=== PATIENT | female | born 1955 | race Caucasian/White ===

== ENCOUNTER 2017-05-26 13:00 | Emergency (ER) | payer BC ==
[~2017-05-26] VITALS: Ht 167.6 cm; Wt 90.3 kg
[~2017-05-26 13:00] MED LIST: ASPI81EC PO; CITA20 PO; DIAZ5 PO; FISH1000 PO; GLIP5 PO; HYDACE5 PO; INSULANI SUBQ; IRBE150 PO; MELA3 PO; OMEP20ER PO; PIOG30 PO; RXCLIN PO; RXHYD5325 PO
[2017-05-26] MEDS ORDERED: Norco 5-325 Ta1 EACH PO (14:05)
[2017-08-07] MEDS ORDERED: CITRATE OF MAG296 ML PO (14:19)
[2017-08-07] MEDS ORDERED: PROM25 PO (14:19)
[2017-08-07] MEDS ORDERED: BISA5EC PO (14:19)
== END 2017-05-26 14:13 | disposition home or self-care (01) ==
LOC: ER 13:00
DX: M25.511 Pain in right shoulder (principal); E11.9 Type 2 diabetes mellitus without complications; Z79.82 Long term (current) use of aspirin; Z79.899 Other long term (current) drug therapy; Z79.4 Long term (current) use of insulin
CPT/HCPCS: 99283

== ENCOUNTER 2017-06-18 09:50 | Day surgery (SDC) | payer BC ==
[~2017-06-18] VITALS: Ht 167.6 cm; Wt 83.5 kg
[~2017-06-18 09:50] MED LIST changes: +Norco 5-325 Ta1 EACH PO
[2017-06-18] MEDS ORDERED: INSULANPEN (11:07)
[2017-06-18] MEDS ORDERED: SITA100T2 (11:08)
[2017-06-18] MEDS ORDERED: BUPR150ERA (11:08)
[2017-06-18] MEDS ORDERED: METF500 (11:08)
[2017-06-18] MEDS ORDERED: MAGOXI400 (11:09)
[2017-06-18] MEDS ORDERED: Desyrel50 MG (11:10)
[2017-06-18] MEDS ORDERED: IRON150C (11:12)
[2017-06-18] MEDS ORDERED: Vitamin C100 M1 (11:12)
[2017-06-18] MEDS ORDERED: CHOL10002 (11:12)
[2017-08-07] MEDS ORDERED: BISA5EC PO (14:19)
[2017-08-07] MEDS ORDERED: CITRATE OF MAG296 ML PO (14:19)
[2017-08-07] MEDS ORDERED: PROM25 PO (14:19)
== END 2017-06-18 12:44 | disposition home or self-care (01) ==
LOC: ORSCSDS 09:50
PROVIDERS: Internal Medicine Gastroenterology
PROC: 0DBK8ZX Excision of Ascending Colon, Via Natural or Artificial Opening Endoscopic, Diagnostic (ICD-10-PCS; principal; 2017-06-18 11:30)
PROC: 0DBM8ZX Excision of Descending Colon, Via Natural or Artificial Opening Endoscopic, Diagnostic (ICD-10-PCS; principal; 2017-06-18 11:30)
PROC: 0DBL8ZX Excision of Transverse Colon, Via Natural or Artificial Opening Endoscopic, Diagnostic (ICD-10-PCS; principal; 2017-06-18 11:30)
PROC: 0DBP8ZX Excision of Rectum, Via Natural or Artificial Opening Endoscopic, Diagnostic (ICD-10-PCS; principal; 2017-06-18 11:30)
DX: Z12.11 Encounter for screening for malignant neoplasm of colon (principal); D12.3 Benign neoplasm of transverse colon; D12.2 Benign neoplasm of ascending colon; D12.4 Benign neoplasm of descending colon; K62.1 Rectal polyp; K64.4 Residual hemorrhoidal skin tags; K64.8 Other hemorrhoids; K57.30 Diverticulosis of large intestine without perforation or abscess without bleeding; Z86.010 Personal history of colon polyps; E11.9 Type 2 diabetes mellitus without complications; I10 Essential (primary) hypertension; E66.01 Morbid (severe) obesity due to excess calories; Z68.32 Body mass index [BMI] 32.0-32.9, adult; Z79.82 Long term (current) use of aspirin; Z79.4 Long term (current) use of insulin; Z79.899 Other long term (current) drug therapy
CPT/HCPCS: 82947; 88305; J7120

== ENCOUNTER 2017-06-28 06:21 | Emergency (ER) | payer BC ==
[~2017-06-28] VITALS: Ht 167.6 cm; Wt 81.7 kg
[~2017-06-28 06:21] MED LIST changes: +BUPR150ERA; +CHOL10002; +Desyrel50 MG; +INSULANPEN; +IRON150C; +MAGOXI400; +METF500; +SITA100T2; +Vitamin C100 M1
[2017-06-28] MEDS ORDERED: ERYT1OIN LEFTEYE (06:56)
[2017-08-07] MEDS ORDERED: CITRATE OF MAG296 ML PO (14:19)
[2017-08-07] MEDS ORDERED: PROM25 PO (14:19)
[2017-08-07] MEDS ORDERED: BISA5EC PO (14:19)
== END 2017-06-28 07:10 | disposition home or self-care (01) ==
LOC: ER 06:21
DX: S05.02XA Injury of conjunctiva and corneal abrasion without foreign body, left eye, initial encounter (principal); E11.9 Type 2 diabetes mellitus without complications; Z79.82 Long term (current) use of aspirin; Z79.899 Other long term (current) drug therapy; Z79.4 Long term (current) use of insulin; Z79.84 Long term (current) use of oral hypoglycemic drugs; W22.8XXA Striking against or struck by other objects, initial encounter
CPT/HCPCS: 99282

== ENCOUNTER → 2017-08-14 | Outpatient (CLI) | payer BC ==
[~2017-08-14] MED LIST changes: +BISA5EC PO; +CITRATE OF MAG296 ML PO; +ERYT1OIN LEFTEYE; +PROM25 PO
[2017-08-14 12:03] LABS: BASOPHILS ABSOLUTE AUTO 0.06 K/mm3 (0.00-0.23); BASOPHILS PERCENT AUTO 1 % (0-2); EOSINOPHILS ABSOLUTE AUTO 0.02 K/mm3 (0.00-0.68); EOSINOPHILS PERCENT AUTO 0 % (0-6); Hematocrit 48.9 % (33.0-51.0); Hemoglobin 16.5 g/dL (11.5-16.0); IMMATURE GRAN ABSOLUTE AUTO 0.06 K/mm3 (0.00-0.10); IMMATURE GRAN PERCENT AUTO 1 % (0-1); LYMPHOCYTES ABSOLUTE AUTO 1.66 K/mm3 (0.84-5.20); LYMPHOCYTES PERCENT AUTO 13 % (21-46); MONOCYTES ABSOLUTE AUTO 1.13 K/mm3 (0.16-1.47); MONOCYTES PERCENT AUTO 9 % (4-13); Mean Corpuscular HGB 28.3 pg (26.0-34.0); Mean Corpuscular HGB Conc 33.7 g/dL (31.5-36.5); Mean Corpuscular Volume 84 fL (80-100); Mean Platelet Volume 9.8 fL (9.1-12.4); NEUTROPHILS ABSOLUTE AUTO 9.81 K/mm3 (1.96-9.15); NEUTROPHILS PERCENT AUTO 77 % (41-73); Platelet Count 346 K/mm3 (150-400); Red Blood Cell Count 5.84 M/mm3 (3.80-5.20); White Blood Cell Count 12.74 K/mm3 (4.00-11.30)
[2017-08-14 12:06] LABS: Anion Gap 11 mmol/L (6-16); Blood Urea Nitrogen 17 mg/dL (8-24); Bun/Creatinine Ratio 19.8 (12.0-20.0); CO2, Blood 28 mmol/L (21-32); Calcium, Blood 9.7 mg/dL (8.5-10.1); Chloride, Blood 102 mmol/L (98-108); Creatinine, Blood 0.86 mg/dL (0.40-1.00); Glomerular Filtration Rate >60 (60-); Glucose, Blood 83 mg/dL (70-99); Potassium, Blood 3.9 mmol/L (3.5-5.5); Sodium, Blood 141 mmol/L (136-145)
== END ==
LOC: LAB EV 11:47 → LAB SHORT 11:47
PROVIDERS: Family Medicine
DX: N39.0 Urinary tract infection, site not specified (principal); R11.2 Nausea with vomiting, unspecified
CPT/HCPCS: 80048; 85025; 87086